=== PATIENT | female | born 1955 | race American Indian/Alaskan Native ===

== ENCOUNTER 2021-04-05 03:15 | Emergency (ER) | payer MEDICARE ==
[2021-04-05 03:30] VITALS: BP 126/58
--- NOTE | 2021-04-05 07:09 | XRay Report ---
CHEST 2 VIEWS INDICATION / CLINICAL INFORMATION: cough. COMPARISON: None available. FINDINGS: SUPPORT DEVICES: None. HEART / MEDIASTINUM: No significant abnormality. LUNGS / PLEURA: No significant pulmonary or pleural abnormality. No pneumothorax. ADDITIONAL FINDINGS: No significant additional findings. IMPRESSION: 1. No acute findings. Signer Name: Tawnya Noland MD Signed: 04/05/2021 7:04 AM Workstation Name: [id number]
[2021-04-05] MEDS ORDERED: SODIUM CHLORIDE 0.9% 500 ML 500 ML IV ONE (07:17)
[2021-04-05] MEDS ORDERED: MORPHINE 2 MG/1 ML INJ IV ONE (07:19)
[2021-04-05] MEDS ORDERED: BENZONATATE 100 MG CAP PO ONE (07:19)
--- NOTE | 2021-04-05 07:20 | Emergency Department Report ---
ED Chest Pain HPI - General Chief Complaint: Upper Respiratory Infection Stated Complaint: COUGH/CONGESTION/CHEST PAIN Time Seen by Provider: 04/05/21 06:48 Source: EMS Mode of arrival: Stretcher Limitations: No Limitations - History of Present Illness Initial Comments: 66-year-old female with past medical history of stage III renal disease not on dialysis, hyperlipidemia, diabetes, hypertension, coronary artery disease with 50% blockage which is currently being treated medically, and history of PE which was diagnosed in March 2020 secondary to Covid, and was treated with Eliquis for for 6 months presents to the ER today with complaints of substernal chest pain. Patient states that she woke up this morning with pressure in her substernal chest area, she states that the pain then became sharp and radiating to her back. She states that she had nausea last night but not with the pain this morning. She denies vomiting. Patient does admit that she has had a cold for about 4 to 5 days, with associated productive cough and she is also been having exertional dyspnea as well as shortness of breath with the cough for the past 2-1/2 days. She states that she did take a COVID-19 test Tuesday and it was negative. She denies any associated wheezing, fever, chills, lower extremity swelling or calf pain. She states that she did get only 1 dose of the COVID-19 vaccine, the moderna in June 22 she states that she did not get the second dose because she had allergic reaction after the first dose. Patient also does admit that she has a history of getting bronchitis when she gets sick with a cold. She does have an inhaler at home which she has been using without much relief. Patient also states that she stopped taking her baby aspirin a month ago, but when the pain started this morning she took 4 of the baby aspirins. MD Complaint: chest pain -: This morning - Related Data Previous Rx's Medication Instructions Recorded Last Taken Type Albuterol Mdi (or & Nicu Only) 2 puff IH QID PRN #8.5 gram 04/05/21 Unknown Rx [ProAir HFA Inhaler] Benzonatate [Tessalon Perles] 100 mg PO Q8HR PRN #30 capsule 04/05/21 Unknown Rx Allergies Allergy/AdvReac Type Severity Reaction Status Date / Time hydromorphone Allergy Hives Verified 04/05/21 03:21 metformin Allergy Hives Verified 04/05/21 03:21 rosuvastatin [From Crestor] Allergy Hives Verified 04/05/21 03:21 Heart Score - HEART Score History: Slightly suspicious EKG: Normal Age: > 65 Risk factors: > 3 risk factors or hx of atherosclerotic disease Troponin: < normal limit HEART Score: 4 - EKG Read Time Time EKG Completed: 03:34 EKG Read Time: 03:38 ED Review of Systems ROS: Stated complaint: COUGH/CONGESTION/CHEST PAIN Other details as noted in HPI Comment: All other systems reviewed and negative Constitutional: denies: chills, fever Eyes: denies: eye pain, eye discharge, vision change ENT: denies: ear pain, throat pain Respiratory: cough, shortness of breath, SOB with exertion, other (SOB with cough ). denies: wheezing Cardiovascular: chest pain. denies: palpitations, dyspnea on exertion, orthopnea, edema, syncope, paroxysmal nocturnal dyspnea Gastrointestinal: nausea. denies: abdominal pain, vomiting, diarrhea, constipation, hematemesis, melena, hematochezia Genitourinary: denies: urgency, dysuria, frequency, hematuria, discharge, abnormal menses, dyspareunia Musculoskeletal: denies: back pain, joint swelling, arthralgia, myalgia Skin: denies: rash, lesions, change in color, change in hair/nails, pruritus Neurological: denies: headache, weakness, numbness, paresthesias, confusion, abnormal gait, vertigo Psychiatric: denies: anxiety, depression, auditory hallucinations, visual hallucinations, homicidal thoughts, suicidal thoughts ED Past Medical Hx - Past Medical History Hx Hypertension: Yes Hx Diabetes: Yes Hx Pulmonary Embolism: Yes Hx Renal Disease: Yes (stage 3) Additional medical history: 50% heart block - Medications Home Medications: Home Medications Medication Instructions Recorded Confirmed Last Taken Type Albuterol Mdi (or & Nicu Only) 2 puff IH QID PRN #8.5 gram 04/05/21 Unknown Rx [ProAir HFA Inhaler] Benzonatate [Tessalon Perles] 100 mg PO Q8HR PRN #30 capsule 04/05/21 Unknown Rx ED Physical Exam - General Limitations: No Limitations General appearance: alert, in no apparent distress - Head Head exam: Present: atraumatic, normocephalic, normal inspection - Eye Eye exam: Present: normal appearance, PERRL, EOMI Pupils: Present: normal accommodation - ENT ENT exam: Present: normal exam - Neck Neck exam: Present: normal inspection, full ROM - Respiratory Respiratory exam: Present: normal lung sounds bilaterally. Absent: respiratory distress, wheezes, rales, rhonchi - Cardiovascular Cardiovascular Exam: Present: regular rate, normal rhythm, normal heart sounds - GI/Abdominal GI/Abdominal exam: Present: soft. Absent: distended, tenderness, guarding, rebound - Extremities Exam Extremities exam: Present: normal inspection, full ROM. Absent: normal capillary refill, pedal edema, calf tenderness - Neurological Exam Neurological exam: Present: alert, oriented X3, CN II-XII intact, normal gait - Psychiatric Psychiatric exam: Present: normal affect, normal mood - Skin Skin exam: Present: intact ED Course Vital Signs 04/05/21 04/05/21 03:29 12:52 Temperature 98.2 F Pulse Rate 52 L 56 L Respiratory 18 Rate Blood Pressure 126/58 [Left] O2 Sat by Pulse 98 100 Oximetry ED Medical Decision Making - Lab Data Result diagrams: 04/05/21 07:27 04/05/21 07:27 - EKG Data EKG shows normal: sinus rhythm Rate: normal (51) No standard instances Rhythm: APC's - EKG Data Interpretation: no acute changes, normal EKG - Radiology Data Radiology results: report reviewed Patient: MICHELLE DELEON MR#: [id number] : 1955 Acct:[id number] Age/Sex: 66 / F ADM Date: 04/05/21 Loc: ED Attending Dr: Ordering Physician: FERNANDO NEVAREZ MD Date of Service: 04/05/21 Procedure(s): XR chest routine 2V Accession Number(s): [id number] cc: FERNANDO NEVAREZ MD Fluoro Time In Minutes: CHEST 2 VIEWS INDICATION / CLINICAL INFORMATION: cough. COMPARISON: None available. FINDINGS: SUPPORT DEVICES: None. HEART / MEDIASTINUM: No significant abnormality. LUNGS / PLEURA: No significant pulmonary or pleural abnormality. No pneumot horax. ADDITIONAL FINDINGS: No significant additional findings. IMPRESSION: 1. No acute findings. Signer Name: Tawnya Noland MD Signed: 04/05/2021 7:04 AM Workstation Name: [id number] Transcribed By: Dictated By: Tawnya Noland MD Electronically Authenticated By: Tawnya Noland MD Signed Date/Time: 04/05/21 0704 - Medical Decision Making Work-up today unremarkable including 2 - troponins and EKG does not suggest STEMI, significant dysrhythmias or acute ischemic changes. Patient vital signs are stable. Patient currently resting comfortably, she is eagerly waiting to leave because she has been in the ER waiting for a long time. She is not in any significant pain or respiratory distress. She is not toxic appearing. She is not ill-appearing. She appears well-hydrated. She is neurologically intact with a normal gait. Suspect patient symptoms more respiratory related secondary to viral illness. At this time I do not suspect PE, unstable angina, aortic dissection, significant arrhythmia, sepsis, acute respiratory distress with hypoxia, or any other significant pathology warranting further testing, admission, specialist consult at this time. Discussed all results with patient. Discussed suspected diagnosis and treatment plan with patient. Recommend follow-up with her primary care doctor. Patient expressed understanding and agree with plan. Patient stable at time of discharge. Critical care attestation.: If time is entered above; I have spent that time in minutes in the direct care of this critically ill patient, excluding procedure time. ED Disposition Clinical Impression: Viral URI with cough, Nonspecific chest pain Disposition: HOME / SELF CARE / HOMELESS Is pt being admited?: No Does the pt Need Aspirin: No Condition: Stable Instructions: Cough, Adult, [id number], Nonspecific Chest Pain, Adult, Upper Respiratory Infection, Adult, [id number] Additional Instructions: Take the tessalon perles as prescribed to help with cough. You can use the albuterol inhaler MDI to help with any difficulty breathing, coughing spell, or wheezing. You can take tylenol from over the counter for pain. I do recommend follow-up with your primary care doctor this week. Return to the ER if your symptoms worsens in any way. Prescriptions: Albuterol Mdi (or & Nicu Only) [ProAir HFA Inhaler] 2 puff IH QID PRN #8.5 gram PRN Reason: Shortness Of Breath Benzonatate [Tessalon Perles] 100 mg PO Q8HR PRN #30 capsule PRN Reason: Cough Referrals: PRIMARY CARE, [Primary Care Provider] - 3-5 Days Time of Disposition: 12:24
[2021-04-05 07:44] LABS: Basophils # (Auto) 0.1 K/mm3 (0.0-0.1); Basophils % (Auto) 1.4 % (0.0-1.8); Eosinophils # (Auto) 0.1 K/mm3 (0.0-0.4); Hematocrit 41.6 % (30.3-42.9); Hemoglobin 13.7 gm/dl (10.1-14.3); Lymphocytes # (Auto) 1.4 K/mm3 (1.2-5.4); Lymphocytes % (Auto) 34.4 % (13.4-35.0); Mean Corpuscular HGB Conc 33 % (30-34); Mean Corpuscular Volume 90 fl (79-97); Monocytes # (Auto) 0.2 K/mm3 (0.0-0.8); Monocytes % (Auto) 5.2 % (0.0-7.3); Platelet Count 289 K/mm3 (140-440); Red Blood Count 4.62 M/mm3 (3.65-5.03); Red Cell Distribution Width 13.5 % (13.2-15.2)
[2021-04-05] MEDS ORDERED: ACETAMINOPHEN 325 MG TAB PO ONE (07:56)
[2021-04-05 08:05] LABS: Alanine Aminotransferase 18 units/L (7-56); Albumin 4.4 g/dL (3.9-5); BUN/Creatinine Ratio 9; Blood Urea Nitrogen 10 mg/dL (7-17); Calcium 9.8 mg/dL (8.4-10.2); Hemolysis Index 3
--- NOTE | 2021-04-05 11:00 | Electrocardiograph Report ---
[facility] Test Date: 2021-04-05 Test Time: 03:34:44 Pat Name: MICHELLE DELEON Department: Room: Gender: F Chief Technology Officer: SHELL : 1955 Requested By: RICO NEVAREZ Order Number: [id number] Reading MD: Francisco J Katz Measurements Intervals [place] Rate: 51 P: 47 [place]: 174 QRS: 28 QRSD: 79 T: 48 QT: 425 QTc: 391 Interpretive Statements Sinus rhythm Atrial premature complexes No previous ECG available for comparison Electronically Signed On 04-05-2021 11:00:11 EST by Francisco J Katz
== END 2021-04-05 12:53 | disposition home or self-care (01) ==
LOC: ED 03:15
DX: J06.9 Acute upper respiratory infection, unspecified (principal); B97.89 Other viral agents as the cause of diseases classified elsewhere; I10 Essential (primary) hypertension; E11.9 Type 2 diabetes mellitus without complications; Z88.5 Allergy status to narcotic agent; Z88.8 Allergy status to other drugs, medicaments and biological substances; Z79.899 Other long term (current) drug therapy
CPT/HCPCS: 36415; 71046; 80053; 83690; 84484; 85025; 93005; 99284; J2270; J7040